=== PATIENT | female | born 1990 | race Caucasian/White ===

== ENCOUNTER 2016-05-25 20:49 | Emergency (ER) | payer MEDICAID ==
[~2016-05-25] VITALS: Ht 160 cm; Wt 59.0 kg
--- NOTE | 2016-05-25 20:52 | NUR ---
PT AMBULATORY TO ER BED 12. C/O N/V/D X 3 DAYS. 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 PLACED ON MONITOR W/ STABLE VITALS NOTED. AWAITING MD THORNE.
[2016-05-25] MEDS ORDERED: IV D5 LR 1,000 ML IV ONE (21:05)
--- NOTE | 2016-05-25 21:06 | NUR ---
DR KO AT BEDSIDE FOR EVAL.
[2016-05-25] MEDS ORDERED: ONDANSETRON HCL/PF 4 MG/2 ML VIAL ONE (21:11)
[2016-05-25] MEDS ORDERED: IV D5 LR 1,000 ML ONE (21:11)
[2016-05-25] MEDS ORDERED: IV SET PRIMARY 1 EA INFUS.SET MC ONE (21:11)
[2016-05-25] MEDS ORDERED: ONDANSETRON HCL/PF 4 MG/2 ML VIAL IV ONE (21:30)
--- NOTE | 2016-05-25 22:17 | NUR ---
PT FEELING MUCH BETTER POST IV FLUIDS AND MEDS. D/C IN STABLE CONDITION. IVHL D/C'D.
[2016-05-25 22:21] VITALS: BP 115/64
== END 2016-05-25 22:22 | disposition home or self-care (01) ==
LOC: ER 20:50
DX: R11.2 Nausea with vomiting, unspecified (principal); R19.7 Diarrhea, unspecified
CPT/HCPCS: 82962-TC; A4606; J2405; J3490; Z7610

== ENCOUNTER 2016-09-28 00:46 | Emergency (ER) | payer MEDICAID ==
[~2016-09-28] VITALS: Ht 157.5 cm; Wt 59.0 kg
[2016-09-28 00:50] VITALS: BP 136/79
--- NOTE | 2016-09-28 03:03 | NUR ---
PT CALLED IN WAITING ROOM, NO ANSWER, PT SLEEPING IN NO APPARENT DISTRESS, PT WOKEN UP AND PT STATES SHE IS FEELING BETTER AND WANTS TO GO HOME, PT A/OX4 BREATHING EFFORTLESSLY ON ROOM AIR, PT STATES HER BF IS OUTSIDE WITH THE CAR AND SOON HE COMES IN TO THE ER LOBBY SHE WANTS TO LEAVE WITH HIM, MADE AWARE.
== END 2016-09-28 04:04 | disposition left against medical advice (07) ==
LOC: ER 00:47
DX: Z53.21 Procedure and treatment not carried out due to patient leaving prior to being seen by health care provider (principal)
CPT/HCPCS: A4606; Z7610